=== PATIENT | male | born 1995 | race African-American/Black ===

== ENCOUNTER 2018-05-03 20:23 | Emergency (ER) | payer MEDICAID ==
[~2018-05-03] VITALS: Ht 172.7 cm; Wt 73.0 kg
[~2018-05-03 20:23] MED LIST: ALBU17AE26; BENZ0.5T3; RISP1
[2018-05-03] MEDS ORDERED: LORAZEPAM 2MG/ML CPJ IV STA (20:54)
[2018-05-03] MEDS ORDERED: SODIUM CHLORIDE 0.9% 1,000 ML IV ONE (20:54)
[2018-05-03 21:14] LABS: EOSINOPHILS % 1.7 % (0.0-5.0); HEMATOCRIT. 41.8 % (42.0-52.0); HEMOGLOBIN. 13.8 g/dL (14.0-18.0); LYMPHOCYTES % 30.6 % (20.0-50.0); MEAN PLATELET VOLUME 9.6 fl (7.4-10.4); NEUTROPHILS % 58.7 % (40.0-76.0); PLATELET 164 x1000/uL (130-400); RED BLOOD CELL COUNT 4.92 mill/uL (4.7-6.1); RED CELL DISTRIBUTION WIDTH 14.5 % (11.6-14.6)
[2018-05-03 21:16] LABS: CHLORIDE 107 mEq/L (98-107)
[2018-05-03 21:20] LABS: ETHANOL BLOOD < 10 mg/dL
[2018-05-03 21:43] LABS: CLARITY URINE CLEAR (CLEAR); COLOR URINE YELLOW (YELLOW); KETONES URINE NEGATIVE (NEGATIVE); LEUKOCYTE ESTERASE URINE NEGATIVE (NEGATIVE); NITRITE URINE NEGATIVE (NEGATIVE); OCCULT BLOOD URINE NEGATIVE (NEGATIVE); PROTEIN URINE NEGATIVE (NEGATIVE); SPECIFIC GRAVITY URINE 1.027 (1.005-1.030)
[2018-05-03 22:02] LABS: *AMPHETAMINES SCREEN URINE NEGATIVE (NEGATIVE); *BARBITURATES SCREEN URINE NEGATIVE (NEGATIVE); *BENZODIAZEPINES SCREEN URINE NEGATIVE (NEGATIVE); *COCAINE SCREEN URINE NEGATIVE (NEGATIVE)
[2018-05-03 22:03] LABS: CANNABINOID URINE SCREEN NEGATIVE (NEGATIVE); METHADONE URINE SCREEN NEGATIVE (NEGATIVE); OPIATES URINE SCREEN NEGATIVE (NEGATIVE); PHENCYCLIDINE URINE SCREEN NEGATIVE (NEGATIVE)
[2018-05-04 14:33] VITALS: BP 112/68
== END 2018-05-04 15:12 | disposition home or self-care (01) ==
LOC: ER 20:23
DX: F41.9 Anxiety disorder, unspecified (principal); R45.851 Suicidal ideations; F17.200 Nicotine dependence, unspecified, uncomplicated
CPT/HCPCS: 36415; 80053; 80305; 81003; 85025; 96361; 96374; 99285; G0482; J2060; J7030; Z7610